=== PATIENT | male | born 1970 | race Caucasian/White ===

== ENCOUNTER 2018-03-05 18:52 | Emergency (ER) | payer SELFPAY ==
[2018-03-05] MEDS: LIDOCAINE HCL 1% 50 ML VIAL INFIL (20:00)
[2018-03-05] MEDS: TETANUS/DIPHTHERIA TOXOID ADULT 0.5 ML VIAL IM (20:17)
[2018-03-05] MEDS: LIDOCAINE HCL 1% PF 30 ML VIAL (20:19)
== END 2018-03-05 20:22 | disposition home or self-care (01) ==
LOC: PHEFT 18:52
DX: S61.240A Puncture wound with foreign body of right index finger without damage to nail, initial encounter (principal); W26.8XXA Contact with other sharp object(s), not elsewhere classified, initial encounter; W45.8XXA Other foreign body or object entering through skin, initial encounter; F17.200 Nicotine dependence, unspecified, uncomplicated; F12.90 Cannabis use, unspecified, uncomplicated; Z23 Encounter for immunization
CPT/HCPCS: 10120; 90471; 90714; 99283-25